=== PATIENT | female | born 1975 | race Hispanic/Latino ===

== ENCOUNTER 2023-01-01 15:15 | Outpatient (CLI) | payer OTHER | END 2023-01-01 15:16 | disposition home or self-care (01) | LOC: BICULT 15:15 | PROVIDERS: ATTEND Nurse Practitioner Women's Health | DX: E03.9 Hypothyroidism, unspecified (principal); R93.89 Abnormal findings on diagnostic imaging of other specified body structures | CPT/HCPCS: 76536 ==